=== PATIENT | male | born 1985 | race American Indian/Alaskan Native ===

== ENCOUNTER 2016-07-25 15:47 | Emergency (ER) | payer MEDICAID ==
[2016-07-25 17:50] LABS: RBC URINE 5 /hpf (0-3); URINE BACTERIA FEW (<OCC); URINE BILIRUBIN NEGATIVE (NEGATIVE); URINE BLOOD NEGATIVE (NEGATIVE); URINE COLOR Yellow (YELLOW); URINE GLUCOSE (UA) NORMAL (Normal); URINE KETONE NEGATIVE (NEGATIVE); URINE LEUKOCYTE ESTERASE 2+ Leu/uL (Negative); URINE PROTEIN NEGATIVE (NEGATIVE); URINE UROBILINOGEN NORMAL mg/dL (0.2-1.0); WBC URINE 97 /hpf (0-5)
[2016-07-25] MEDS ORDERED: cefTRIAXone (Rocephin) 250 mg Inj IM STA (17:58)
--- NOTE | 2016-07-25 18:02 | C.PDOC ---
History Of Present Illness 30 y/o male c/o 1 week hx of tingling at end of urination, and some left groin discomfort. pt also c/o swelling to left teste swelling a few days ago. resolved now. no abdominal pain, nausea. vomiting. denies rash, denies lesions. denies penile discharge. pt has unprotected sex with one partner. Time Seen by Provider: 07/25/16 16:58 Chief Complaint (Nursing): Male Genitourinary Past Medical History Reviewed: Historical Data, Nursing Documentation, Vital Signs Vital Signs: Last Vital Signs Temp 98.3 F 07/25/16 19:22 Pulse 90 07/25/16 19:22 Resp 18 07/25/16 19:22 BP 151/90 H 07/25/16 19:22 Pulse Ox 96 07/25/16 19:22 - Medical History PMH: No Chronic Diseases Surgical History: No Surg Hx Family History: States: Unknown Family Hx - Social History Hx Tobacco Use: Yes Hx Alcohol Use: Yes Hx Substance Use: Yes - Immunization History Hx Tetanus Toxoid Vaccination: No Hx Influenza Vaccination: No Hx Pneumococcal Vaccination: No Review Of Systems Constitutional: Negative for: Fever, Chills Genitourinary: Positive for: Dysuria, Scrotal Pain (left teste swelling a fw days ago). Negative for: Frequency, Incontinence, Penile Discharge Skin: Negative for: Rash Neurological: Negative for: Weakness, Numbness Physical Exam - Physical Exam Appears: Non-toxic, No Acute Distress Skin: Normal Color, Warm, Dry Gastrointestinal/Abdominal: Bowel Sounds, Soft, No Tenderness Male Genital: Normal Inspection, No Testicular Tenderness, Testicular Swelling ( left teste fullness posteriorly), No Inguinal Tenderness, No Inguinal Swelling , No Scrotal Swelling, Circumcised, Other (no lesions noted) ED Course And Treatment O2 Sat by Pulse Oximetry: 98 - CT Scan/US US - Testicular Other Rad Studies (CT/US): Read By Radiologist, Radiology Report Reviewed CT/US Interpretation: HISTORY: left test swelling. TECHNIQUE: Realtime sonography through the scrotum with color and doppler flow. COMPARISON: None Available. FINDINGS: RIGHT TESTICLE: Measures 5.1 x 2.5 x 3.8 cm. Normal echotexture and flow. RIGHT EPIDIDYMIS: Epididymal head measures 0.9 cm. Grossly unremarkable appearance with normal flow. LEFT TESTICLE: Measures 5.8 x 2.7 x 4 cm. Normal echotexture and flow. LEFT EPIDIDYMIS: Epididymal head measures 1.3 cm. Grossly unremarkable appearance with normal flow. HYDROCELE: None. VARICOCELE: None. OTHER FINDINGS: None. IMPRESSION: No acute findings related to/accounting for the clinical presentation. Negative study for epididymitis, orchitis or torsion. Medical Decision Making Medical Decision Making: pt with neg teste sono; pt has lg white cels inurine. will treat for uti as well as sti. Disposition Counseled Patient/Family Regarding: Studies Performed, Diagnosis, Need For Followup, Rx Given - Disposition Referrals: [facility] at [facility] [Outside] Disposition: HOME/ ROUTINE Disposition Time: 19:14 Condition: GOOD Additional Instructions: Follow up with PMD in 1-2 days. Take medications as prescribed. Recommend that you don't have sexual relations until seen by PMD or urologist. Recommend that your partner is evaluated as well Prescriptions: Nitrofurantoin Macrocrystals [Macrobid] 100 mg PO BID #14 cap Instructions: Nonspecific Urethritis in Men (ED), Urinary Tract Infection in Men (ED) Forms: General Discharge Instructions - Clinical Impression Clinical Impression: Urethritis, Urinary tract infection
--- NOTE | 2016-07-25 18:46 | US ---
HISTORY: left test swelling TECHNIQUE: Realtime sonography through the scrotum with color and doppler flow. COMPARISON: None Available. FINDINGS: RIGHT TESTICLE: Measures 5.1 x 2.5 x 3.8 cm. Normal echotexture and flow. RIGHT EPIDIDYMIS: Epididymal head measures 0.9 cm. Grossly unremarkable appearance with normal flow. LEFT TESTICLE: Measures 5.8 x 2.7 x 4 cm. Normal echotexture and flow. LEFT EPIDIDYMIS: Epididymal head measures 1.3 cm. Grossly unremarkable appearance with normal flow. HYDROCELE: None. VARICOCELE: None. OTHER FINDINGS: None. IMPRESSION: No acute findings related to/accounting for the clinical presentation. Negative study for epididymitis, orchitis or torsion.
[2016-07-25 19:23] VITALS: BP 151/90; PULSE 90; RESP 18; TEMP 98.3
[2016-07-25 23:13] VITALS: O2SAT 98
== END 2016-07-25 19:24 | disposition home or self-care (01) ==
LOC: C.ER 15:47
DX: N34.2 Other urethritis (principal)

== ENCOUNTER 2016-11-28 13:15 | Emergency (ER) | payer MEDICAID, OTHER ==
[2016-11-28 13:46] VITALS: BMI 32.1
[2016-11-28 13:51] VITALS: BP 131/96; PULSE 57; RESP 18; TEMP 98.5; O2SAT 99
[2016-11-28] MEDS ORDERED: Lidocaine 5% Patch TD STA (14:35)
[2016-11-28] MEDS ORDERED: Lidocaine 5% Patch TD ONE (14:40)
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
== END 2016-11-28 15:02 | disposition home or self-care (01) ==
LOC: C.ER 13:15
DX: M54.5 Low back pain (principal); V43.52XA Car driver injured in collision with other type car in traffic accident, initial encounter; Y92.410 Unspecified street and highway as the place of occurrence of the external cause

== ENCOUNTER 2017-04-29 09:28 | Emergency (ER) | payer MEDICAID, OTHER ==
[2017-04-29 09:28] VITALS: BMI 32.1
[2017-04-29 10:34] LABS: URINE BILIRUBIN NEGATIVE (NEGATIVE); URINE BLOOD NEGATIVE (NEGATIVE); URINE COLOR Yellow (YELLOW); URINE GLUCOSE (UA) NORMAL (Normal); URINE KETONE NEGATIVE (NEGATIVE); URINE LEUKOCYTE ESTERASE NEG Leu/uL (Negative); URINE PROTEIN NEGATIVE (NEGATIVE)
[2017-04-29] MEDS ORDERED: cefTRIAXone (Rocephin) 250 mg Inj IM STA (10:44)
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
[2017-04-29 11:31] VITALS: BP 110/77; PULSE 50; RESP 18; TEMP 97.7; O2SAT 100
== END 2017-04-29 11:26 | disposition home or self-care (01) ==
LOC: C.ER 09:28
DX: N34.2 Other urethritis (principal); Z87.891 Personal history of nicotine dependence
CPT/HCPCS: 81001; 87491; 87591; 96372; 99285; J0696